=== PATIENT | female | born 1970 | race Caucasian/White ===

== ENCOUNTER 2024-02-13 15:12 | Observation (INO) | payer OTHER, SELFPAY ==
[2024-02-12 08:38] LABS: Basophils # 0.1 10^3/uL (0.0-0.1); Basophils % 1.8 %; Eosinophils # 0.3 10^3/uL (0.0-0.8); Eosinophils % 3.6 %; Hematocrit 43.8 % (36-47); Lymphocytes # 2.4 10^3/uL (0.8-4.8); Lymphocytes % 31.1 %; Mean Corpuscular HGB Conc 33.1 g/dL (30-55); Mean Corpuscular Volume 90.7 fl (85-98); Mean Platelet Volume 9.2 fL (7.4-10.4); Monocytes # 0.5 10^3/uL (0.2-0.9); Monocytes % 5.8 %; Neutrophils # 4.49 10^3/uL (1.8-7.7); Neutrophils % 57.4 %; Nucleated Red Blood Cells % 0 %; Platelet Count 301 10^3/cmm (157-399); Red Blood Count 4.83 10^6/uL (3.85-5.65); Red Cell Distribution Width 12.2 % (12.1-15.1); White Blood Count 7.81 10^3/uL (3.29-11.43)
[2024-02-12 08:52] LABS: INR 0.95 (0.8-1.2)
[2024-02-12 09:07] LABS: Bilirubin Urine Negative (Negative); Blood Urine Negative (Negative); Glucose Urine UA Negative (Normal); Ketones Urine Negative (Negative); Leukocyte Esterase Urine 2+ (Negative); Nitrate Urine Negative (Negative); Protein Urine Negative (Negative); Specific Gravity, Urine 1.022 (1.005-1.030); Urine Appearance Clear (CLEAR); Urine Color Yellow (Yellow); pH Urine 5.5 (5-7)
[2024-02-12 09:10] LABS: Bacteria Urine 1+ /hpf; Hyaline Casts Urine 2.05 /lpf; RBC Urine 0-2 /hpf (0-2); WBC Urine 21-50 /hpf (0-5)
[2024-02-12 09:12] LABS: Add Urine Culture? Yes
[2024-02-12 09:18] LABS: Anion Gap 18.1 (5-19); Blood Urea Nitrogen 17 mg/dL (6-20); Calcium 9.2 mg/dL (8.5-10.5); Carbon Dioxide 24 mmol/L (22-29); Chloride 104 mmol/L (98-107); Glomerular Filtration Rate 104.6 mL/min (90-130); Glucose 93 mg/dL (65-115); Osmolality Calculated 295 mOsm/kg (285-295); Potassium 4.1 mmol/L (3.5-5.1); Sodium 142 mmol/L (136-145)
--- NOTE | 2024-02-12 09:19 | ANES.PREANE2 ---
Pre-Anesthetic Assessment Height/Weight: Height 5 ft 7 in Operation Date: 02/13/24 12:40 Proposed Procedures p Anterior Repair Anterior Colporrhaphy 75208, 28620,N81.10, N39.3(Not Applicable) - Ronny Ferris MD s Posterior Repair Posterior Colporrhaphy(Not Applicable) - Ronny Ferris MD s Sling Single Incision Midurethral Sling(Not Applicable) - Ronny Ferris MD Social No alcohol and No tobacco Exam alert, oriented x 3, clear to auscultation bilaterally and regular rate & rhythm Airway Submandibular: within normal limits Cervical ROM: within normal limits Mallampati: Class II Dentition: full Anesthetic Plan ASA status: 2 Anesthesia: General Other: Patient evaluated for surgery tomorrow, 02/12 No prior issues with anesthesia Patient has a history of bilateral pulmonary emboli following . Follows with hematology and takes daily warfarin. Currently being bridged with Lovenox Patient denies any cardiac or lung issues METs greater than 4 Labs 02/11 reviewed and acceptable for surgery Will plan on general anesthesia with the ETT Medications/Allergies Home Medications Medication Instructions Recorded Confirmed Last Taken Type aspirin 81 mg tablet,delayed 81 mg PO DAILY 01/01/24 02/12/24 02/07/24 History release (Adult Aspirin Regimen) warfarin 5 mg tablet 5 mg PO DAILY 01/01/24 02/12/24 02/07/24 History enoxaparin 80 mg/0.8 mL 80 mg SUBCUT Q12H 02/12/24 02/12/24 02/12/24 History subcutaneous syringe (Lovenox) Allergies Allergy/AdvReac Type Severity Reaction Status Date / Time acetaminophen [From Vicodin] Allergy Unknown Unknown Verified 02/09/24 09:55 hydrocodone [From Vicodin] Allergy Unknown Unknown Verified 02/09/24 09:55 prochlorperazine Allergy Unknown Unknown Verified 02/09/24 09:55 [From Compazine] REPLACED BY [facility] Anesthesia Family History Father Colon cancer Denies family history of Ovarian cancer Prostate cancer Diabetes Heart disease Breast cancer Hypertension Uterine cancer Thyroid disease Stroke Social History Smoking and tobacco/nicotine status: never used tobacco/nicotine Data Anesthesia 02/12/24 08:21 02/12/24 08:21 Short CBC 02/12/24 Range/Units 08:21 WBC 7.81 (3.29-11.43) 10^3/uL Hgb 14.50 (11.27-16.99) g/dL Hct 43.8 (36-47) % MCV 90.7 (85-98) fl Plt Count 301 (157-399) 10^3/cmm Neut % (Auto) 57.4 % Neut # (Auto) 4.49 (1.8-7.7) 10^3/uL BMP 02/12/24 08:21 Sodium 142 Potassium 4.1 Chloride 104 Carbon Dioxide 24 BUN 17 Creatinine 0.6 Glucose 93 Calcium 9.2 Urine 02/12/24 Range/Units 08:25 Urine Color Yellow (Yellow) Urine Appearance Clear (CLEAR) Urine pH 5.5 (5-7) Ur Specific [place] 1.022 (1.005-1.030) Urine Protein Negative (Negative) Urine Glucose (UA) Negative (Normal) Urine Ketones Negative (Negative) Urine Nitrate Negative (Negative) Urine Bilirubin Negative (Negative) Ur Leukocyte Esterase 2+ A (Negative) Urine RBC 0-2 (0-2) /hpf Urine WBC 21-50 H (0-5) /hpf Coags 02/12/24 08:21 PT 13.00 INR 0.95 Cardiac Studies: No Data to Display
[2024-02-13] VITALS (14 sets, daily range): BP systolic 110–142; BP diastolic 65–88; PULSE 84–113; RESP 14–19; TEMP 36.2–37.2; O2SAT 93–98; BMI 23.5
[2024-02-13] MEDS: sodium chloride 0.9% 500 ML IV (11:29)
[2024-02-13] MEDS: scopolamine 1.5 Patch 1 PATCH TRANSDERMA (11:29)
[2024-02-13] MEDS: sodium chloride 0.9% 1,000 ML 30 ML IV (11:30)
[2024-02-13] MEDS: ceFAZolin 2,000 mg SDV 2000 MG IVP (12:20)
--- NOTE | 2024-02-13 12:56 | W.PM.OPSUD ---
Surgery/Procedure H&P Update DATE OF PROCEDURE: February 13, 2024 DATE H&P PERFORMED: 02/09/24 H&P UPDATE INFORMATION: I have reviewed H&P completed within last 30 days, I have examined patient prior to procedure and No changes to prior documentation PREOP DIAGNOSIS: Cystocele, rectocele, urinary incontinence PLANNED PROCEDURE: Operation Date: 02/13/24 12:40 Proposed Procedures p Anterior Repair Anterior Colporrhaphy 17723, 66127,N81.10, N39.3(Not Applicable) - Ronny Ferris MD s Posterior Repair Posterior Colporrhaphy(Not Applicable) - Ronny Ferris MD s Sling Single Incision Midurethral Sling(Not Applicable) - Ronny Ferris MD
[2024-02-13] MEDS: lidocaine-epi 2% PF 1:200,000 20 mL SDV INJECTION (14:02)
--- NOTE | 2024-02-13 15:04 | P.OP_ITS ---
Operative Report Date of procedure: February 13, 2024 Pre-op diagnosis: Cystocele stage III Rectocele stage II Stress incontinence Post-op diagnosis: same Procedure done: Anterior colporrhaphy augmented with allograft Mid urethral sling Posterior colporrhaphy Implants: Coloplast Altis sling Coloplast dermis allograft Surgeon: Ronny Ferris MD Estimated blood loss (mL): 50 IV fluids (mL): 400 Urine output (mL): 1,000 Complications: None Procedure: After obtaining informed consent, the patient was taken to the operating room and placed in the supine position, given general anesthesia, and prepped and draped in sterile fashion. The abdomen, vulva and vagina were prepped and draped in a sterile manner. A time out procedure was performed.. The anterior vaginal mucosa beneath the midurethra was infiltrated with 2% lidocaine with epinephrine. A vertical midline incision was made beneath the midurethra, nearly 1.5 cm length. Careful submucosal dissection was performed bilaterally up to the interior portion of the inferior pubic ramus. The insertion of adductor longus tendon on the patient?s pubic ramus was identified as reference land jasvir. Palpated the notch along the internal edge of ischiopubic ramus where the adductor longus tendon and the inferior pubic ramus meet. The Altis single incision sling (SIS) was selected. Then the needle of the SIS inserted aiming at the location of this notch. One of the integrated self- fixating tips place onto the needle by sliding it over the end of the needle. The needle/sling assembly was inserted toward the location of identified reference notch making sure that the flat of the handle is perpendicular to the desired path. The needle was tracked along the posterior surface of the ischiopubic ramus until the midline jasvir on the mesh is approximately at the midline position under the urethra. The needle was removed and the same was repeated on the contralateral side until the appropriate sling tension under the urethra was achieved ensuring that the mesh lays flat. The needle was removed and vaginal incision was closed in a running interlocking fashion with 2-0 Vicryl. The vaginal mucosa was scored in the midline with the Bovie approximately 1 cm medial to the urethral meatus to 1 cm distal to the vaginal cuff. This vaginal mucosa was then undermined and then incised in the midline with the Metzenbaum scissors. The lateral aspects of the vaginal mucosa were then grasped with the Allis clamps and the vaginal mucosa was then dissected off the underlying fascia with the Metzenbaum scissors. Again, there was noted to be quite a bit of oozing at the incision, which was controlled with cautery. After adequate dissection was performed, bilaterally. A Coloplast dermis allograft was modified at time of application to fit spacea, 3 x 3 cm piece . The dermis allograft was placed in front of cystocele ready to be implanted facing the vagina mucosa. Suture is placed at distal end of graft and placed towards vaginal cuff. Final suture is placed on proximal portion of the graft to complete the placement overlying the bladder. Then Interrupted vertical mattress sutures of 0 Vicryl were used to elevate the cystocele superiorly. The excessive vaginal mucosa was then trimmed with the Metzenbaum scissors and the vaginal mucosa was then reapproximated in the running interlocking fashion with 2-0 Vicryl. Then proceeded to perform the posterior colporrhaphy. 2% lidocaine with epinephrine was infiltrated under the posterior vaginal mucosa midline and into the perineal body. A daniel incision was cut in the perineum. The posterior vaginal wall was opened vertically and midline up to the apex of the rectocele. The cut edges were held and splayed laterally with a series of Allis clamps and held in place with the Juan Francisco retractor and hooks. The open vaginal mucosa was then dissected laterally with a combination of sharp and blunt dissection, exposing the perirectal fascia. The perirectal fascia was then reapproximated with interrupted #2-0 Vicryl sutures to draw the lateral folds together and tuck the rectocele back. Deep interrupted sutures of #0 Vicryl were used to reapproximate the fibers of the levator ani muscles. The excess vaginal mucosa was trimmed. The posterior vaginal wall was closed with a running locked #0 Vicryl to the hymenal tags. The superficial perineal muscles were closed with running unlocked #0 Vicryl and the perineal skin was closed with running subcuticular #2-0 Vicryl. Then the Mcleod catheter was removed and cystoscope was inserted. The bladder was filled with sterile water. Complete evaluation of the bladder mucosa was performed noting no lacerations, dimpling, tears, bleeding of the mucosa or muscular layers. Both ureteral orifices were identified. Prompt excretion of urine from both ureteral orifices was noted. Cystoscope was withdrawn. The Mcleod catheter was replaced. Excellent hemostasis was obtained. A vaginal pack is placed overnight as postoperative support for the vaginal tissues after graft placement and closure of vaginal incisions. Sponge, lap, needle, and instrument counts were correct times three. The patient was taken to the recovery room, awake and in stable condition.
--- NOTE | 2024-02-13 15:40 | ANE.PACU2 ---
Inpatient post-anesthesia follow up: Airway intact: Yes Vital signs: Temperature 98.1 F Pulse Rate 69 Respiratory Rate 17 Blood Pressure 121/75 Pulse Oximetry 98 Oxygen Delivery Me thod Room Air Oxygen Flow Rate Fraction of Inspir ed Oxygen Hydration adequate: Yes Nausea and vomiting: No Pain level: 1 Mental status: Baseline
[2024-02-13] MEDS: ketorolac 30 mg/mL INJ IVP ×2 (16:39→22:39)
[2024-02-13] MEDS: cetylpyridinium Lozenge 1 EACH MUCOUS MEM (16:57)
[2024-02-13] MEDS: docusate sodium 100 mg Capsule PO (18:00)
[2024-02-13] MEDS: enoxaparin 80 mg/0.8 mL Syringe 70 MG SUBCUT (21:18)
[2024-02-14 04:00] VITALS: BP 110/67; PULSE 71; RESP 14; TEMP 36.6; O2SAT 97
[2024-02-14 05:24] LABS: Hematocrit 39.1 % (36-47); Mean Corpuscular HGB Conc 32.7 g/dL (30-55); Mean Corpuscular Hemoglobin 29.4 pg (27-33); Mean Corpuscular Volume 89.7 fl (85-98); Mean Platelet Volume 9.1 fL (7.4-10.4); Platelet Count 300 10^3/cmm (157-399); Red Blood Count 4.36 10^6/uL (3.85-5.65); Red Cell Distribution Width 12.2 % (12.1-15.1); White Blood Count 17.38 10^3/uL (3.29-11.43)
[2024-02-14] MEDS: ketorolac 30 mg/mL INJ IVP (05:42)
[2024-02-14] MEDS: enoxaparin 80 mg/0.8 mL Syringe 70 MG SUBCUT (10:08)
[2024-02-14] MEDS: warfarin 5 mg Tablet PO (10:09)
[2024-02-14] MEDS: docusate sodium 100 mg Capsule PO (10:09)
[2024-02-14] MEDS: aspirin 81 mg EC Tablet PO (10:09)
[2024-02-14 10:16] VITALS: BP 123/71; PULSE 80; RESP 16; TEMP 36.6; O2SAT 96
--- NOTE | 2024-02-14 12:33 | PM.OBGYDC ---
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 Mcginnis 53-year-old female post hysterectomy with a history of cystocele and rectocele associated with stress incontinence. She was admitted for planned anterior colporrhaphy augmented with allograft, mid urethral sling and posterior colporrhaphy. The procedures were performed without complication. Overnight uneventful. She is afebrile and hemodynamically stable postoperative day 1. PVR within normal limits. Tolerating diet well. Ambulating without difficulty. She was counseled regarding pelvic rest for 6 weeks (no sex, no tampons, no vaginal douches). Return to the emergency room if any fever, increased bleeding or pain. Physical Exam Narrative: GA: Alert and oriented ?3. HEENT: WNL. Heart: Regular rate and rhythm. Lungs: Clear to auscultation bilaterally. Abdomen: Bowel sounds present, nontender. [employer]: spotting bleeding. Extremities: No edema, no cyanosis, no calves pain. Urinary Catheter Management: Mcleod: Cath Placed During This Visit: yes, but has since been removed by the nurse Reason for Continuing Indwelling Catheter: Decision to DC Catheter Urinary Catheter Date of Insertion: 02/13/24 Urinary Catheter Time of Insertion: 13:45 Date Urinary Catheter Removed: 02/14/24 Time Urinary Catheter Discontinued: 06:00 History History History 6 Term 4 0 Miscarriages/Ectopic 2 Living Children 5 Discharge Data Studies Completed and Pending Laboratory Results WBC 17.38 10^3/uL (3.29-11.43) H 02/14/24 05:10 RBC 4.36 10^6/uL (3.85-5.65) 02/14/24 05:10 Hgb 12.80 g/dL (11.27-16.99) 02/14/24 05:10 Hct 39.1 % (36-47) 02/14/24 05:10 MCV 89.7 fl (85-98) 02/14/24 05:10 MCH 29.4 pg (27-33) 02/14/24 05:10 MCHC 32.7 g/dL (30-55) 02/14/24 05:10 RDW 12.2 % (12.1-15.1) 02/14/24 05:10 Plt Count 300 10^3/cmm (157-399) 02/14/24 05:10 MPV 9.1 fL (7.4-10.4) 02/14/24 05:10 Neut % (Auto) 57.4 % 02/12/24 08:21 Lymph % (Auto) 31.1 % 02/12/24 08:21 [place] % (Auto) 5.8 % 02/12/24 08:21 Eos % (Auto) 3.6 % 02/12/24 08:21 Baso % (Auto) 1.8 % 02/12/24 08:21 Neut # (Auto) 4.49 10^3/uL (1.8-7.7) 02/12/24 08:21 Lymph # (Auto) 2.4 10^3/uL (0.8-4.8) 02/12/24 08:21 [place]ell # (Auto) 0.5 10^3/uL (0.2-0.9) 02/12/24 08:21 Eos # (Auto) 0.3 10^3/uL (0.0-0.8) 02/12/24 08:21 Baso # (Auto) 0.1 10^3/uL (0.0-0.1) 02/12/24 08:21 Nucleated RBC % (auto) 0 % 02/12/24 08:21 Nucleated RBCs # 0.0 /100WBC 02/12/24 08:21 PT 13.00 SECONDS (12.1-14.9) 02/12/24 08:21 INR 0.95 (0.8-1.2) 02/12/24 08:21 Sodium 142 mmol/L (136-145) 02/12/24 08:21 Potassium 4.1 mmol/L (3.5-5.1) 02/12/24 08:21 Chloride 104 mmol/L (98-107) 02/12/24 08:21 Carbon Dioxide 24 mmol/L (22-29) 02/12/24 08:21 Anion Gap 18.1 (5-19) 02/12/24 08:21 BUN 17 mg/dL (6-20) 02/12/24 08:21 Creatinine 0.6 mg/dL (0.5-0.9) 02/12/24 08:21 GFR Calculation 104.6 mL/min (90-130) 02/12/24 08:21 Glucose 93 mg/dL (65-115) 02/12/24 08:21 Calculated Osmolality 295 mOsm/kg (285-295) 02/12/24 08:21 Calcium 9.2 mg/dL (8.5-10.5) 02/12/24 08:21 Urine Color Yellow (Yellow) 02/12/24 08:25 Urine Appearance Clear (CLEAR) 02/12/24 08:25 Urine pH 5.5 (5-7) 02/12/24 08:25 Ur Specific [place] 1.022 (1.005-1.030) 02/12/24 08:25 Urine Protein Negative (Negative) 02/12/24 08:25 Urine Glucose (UA) Negative (Normal) 02/12/24 08:25 Urine Ketones Negative (Negative) 02/12/24 08:25 Urine Blood Negative (Negative) 02/12/24 08:25 Urine Nitrate Negative (Negative) 02/12/24 08:25 Urine Bilirubin Negative (Negative) 02/12/24 08:25 Urine Urobilinogen 1.0 mg/dL (Negative) 02/12/24 08:25 Ur Leukocyte Esterase 2+ (Negative) A 02/12/24 08:25 Urine RBC 0-2 /hpf (0-2) 02/12/24 08:25 Urine WBC 21-50 /hpf (0-5) H 02/12/24 08:25 Ur Squamous Epith Cells 11-20 /hpf (0-5) 02/12/24 08:25 Amorphous Sediment Not Reportable 02/12/24 08:25 Urine Bacteria 1+ /hpf (NONE) H 02/12/24 08:25 Hyaline Casts 2.05 /lpf 02/12/24 08:25 Blood Type O Positive 02/12/24 08:21 Rho(D) Type Rh positive 02/12/24 08:21 Antibody Screen Negative 02/12/24 08:21 Vitals Last Vital Signs Temp 97.9 F 02/14/24 10:16 Pulse 80 02/14/24 10:16 Resp 16 02/14/24 10:16 BP 123/71 02/14/24 10:16 Pulse Ox 96 02/14/24 10:16 O2 Del Method Room Air 02/14/24 10:16 Results Labs OB ([facility]): Blood Type O Positive 02/12/24 Antibody Screen Negative 02/12/24 Hct 39.1 % (36-47) 02/14/24 Hgb 12.80 g/dL (11.27-16.99) 02/14/24 Rho(D) Type Rh positive 02/12/24 Plt Count 300 10^3/cmm (157-399) 02/14/24 Micro Urine Specimen 02/12/24 Discharge Plan Discharge Patient Disposition: Home Condition: Stable Prescriptions: New ibuprofen 800 mg tablet 800 mg PO TID PRN (Reason: pain) Qty: 60 0RF Continued warfarin 5 mg tablet 5 mg PO DAILY aspirin [Adult Aspirin Regimen] 81 mg tablet,delayed release (DR/EC) 81 mg PO DAILY enoxaparin [Lovenox] 80 mg/0.8 mL Syringe 80 mg SUBCUT Q12H Discharge Orders: Discharge Order (Routine); Ordered 02/14/24 Ordered By: Ronny Ferris Referrals: Ronny Ferris MD [Physician] - 03/29/24 9:30 am Bonita Kurtz APN, WHNP [Nurse Practitioner] - 03/01/24 9:30 am Discharge Diet: Usual diet Discharge Activity: Limit activity as instructed Patient Instructions: Acute Wound Care (DC), Bladder Sling for Women (GEN), Anterior Vaginal Repair (GEN), Posterior Vaginal Repair (GEN), Opioid Safety, Post Anesthesia Care Activity Restrictions/Additional Instructions: 1. Please call [facility] on next working day to make your post-operative appointment in 2 weeks and Monday to the clinic to test for INR before discontinuing Lovenox. 2. Please stay home until you come back to the clinic on first post-hospatilization check up. 3. Please follow instructions on your medications CAREFULLY. 4. If you have abdominal incision, do not cover it unless dressing is necessary because of drainage. OK to shower, but avoid bath. Leave steri-strips until they fall off. If they are still on one week after surgery, you may remove them. 5. If you had vaginal surgery or vaginal repair, Dr. Ferris may instruct you to take SITZ bath. 6. Yellow, blood tinged odorous vaginal discharge is usually normal after hysterectomy or vaginal surgeries. 7. No SEXUAL INTERCOURSE, tampons, or douches until you are completely released from the post-operative care. 8. Avoid constipation by eating right and maybe using some Metamucil or Milk of Magnesia. 9. All prescription refills are given during the working hours. Please do no wait till it runs out. Call the clinic at [phone] before your medication runs out. The clinic will get in touch with your doctor to prescribe medications if necessary. 10. Please remain within 40 mile radius from our hospital because emergencies do happen now and then during the post-operative period. 11. If you have stairs at home, take one step at a time slowly and minimize the number of trips. It helps to stay in one floor for the next few days. No lifting except what you can lift by one hand until you are released from the post-operative care. 12. Driving is discouraged until you are well healed. It may be 3-4 weeks before you feel strong enough to drive. You should be able to turn and look through the rear window without pain and you should be able to push the brake pedal very hard without pain before you drive. No fast rules, but SAFETY should be your primary concern. DO NOT drive if you are on sedating medications such as narcotics. 13. Call the clinic (during working hours) to make urgent appointment or go to the Emergency room, if any of the following occurs: i. Vaginal bleeding becomes heavy, more than a period. ii. Incision becomes red and sore, or drains pus. iii. Your TEMPERATURE is over 100.4F or you have chill. iv. IV site becomes red and swollen (a little ``knot?? is usually OK) v. Persistent nausea and vomiting vi. Persistent constipation or diarrhea vii. Rash or allergic reaction to medications. 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
[2024-02-14 13:03] VITALS: BP 121/75; PULSE 69; RESP 17; TEMP 36.7; O2SAT 98
[2024-02-14 13:08] VITALS: BP 121/75; PULSE 69; RESP 17; TEMP 36.7; O2SAT 98
== END 2024-02-14 13:08 | disposition home or self-care (01) ==
LOC: OBGYN 15:12
PROVIDERS: Admitting Provider Obstetrics & Gynecology; Visit Provider Obstetrics & Gynecology
PROC: 0JQC0ZZ Repair Pelvic Region Subcutaneous Tissue and Fascia, Open Approach (ICD-10-PCS; CPT 57240; principal; 2024-02-13 12:30)
PROC: (CPT 57250; 2024-02-13 12:30)
PROC: (CPT 57288; 2024-02-13 12:30)
DX: N81.10 Cystocele, unspecified (principal); N81.6 Rectocele; N39.3 Stress incontinence (female) (male); Z79.01 Long term (current) use of anticoagulants
CPT/HCPCS: 57260; 57288; 36415; 51798; 80048; 81001; 85025; 85027; 85610; 86850; 86900; 87086; 96372; C1713; C1762; G0378; J0131; J0690; J1100; J1650; J1885; J2250; J2405; J2704; J3010; J7030; J7040